=== PATIENT | male | born 1955 | race Caucasian/White ===

== ENCOUNTER 2016-12-13 13:27 | Emergency (ER) | payer BC ==
--- NOTE | 2016-12-13 16:00 | UC ---
Throat Pain/Nasal Rommel HPI - HPI Summary HPI Summary: complaint of nasal congestion and cough that started 2 days ago intermittent headache productive cough with yellow mucus denies fever and chills, sore throat diarrhea for 2 days took delsum, mucinex, affrin wheezing more at night coughing when he lies down denies shortness of breath - History of Current Complaint Stated Complaint: COUGH,CONGESTION,HEADACHE Time Seen by Provider: 12/13/16 15:54 Hx Obtained From: Patient - Allergies/Home Medications Allergies/Adverse Reactions: Allergies Allergy/AdvReac Type Severity Reaction Status Date / Time Sulfamethoxazole Allergy Severe edema/ Verified 12/13/16 15:58 w/Trimethoprim vomiting [From Bactrim] Home Medications: Home Medications [id number] W/ APAP [Delsym Cough + Cold D... 5-52-440-325 mg/10Ml] 1 liq PO ONCE PRN 12/13/16 [History Confirmed 12/13/16] PMH/Surg Hx/FS Hx/Imm Hx Previously Healthy: Yes Cardiovascular History Of: Reports: Hypertension Respiratory History Of: Reports: Asthma - Surgical History Surgical History: None - Family History Known Family History: Positive: Cardiac Disease - father, Hypertension Negative: Respiratory Disease - Social History Lives: With Family Alcohol Use: Daily Alcohol Amount: two glasses of wine daily Substance Use Type: None Smoking Status (MU): Never Smoked Tobacco Household Exposure Type: Cigarettes Review of Systems Constitutional: Negative Skin: Negative Eyes: Negative ENT: Nasal Discharge Respiratory: Cough Cardiovascular: Negative Gastrointestinal: Negative Genitourinary: Negative Motor: Negative Neurovascular: Negative Musculoskeletal: Negative Neurological: Negative Psychological: Negative All Other Systems Reviewed And Are Negative: Yes Physical Exam Triage Information Reviewed: Yes Appearance: No Pain Distress, Well-Nourished Vital Signs Reviewed: Yes Eyes: Positive: Conjunctiva Clear ENT: Positive: Pharyngeal erythema, Nasal congestion, TMs normal. Negative: TM bulging, TM red Neck: Positive: No Lymphadenopathy Respiratory: Positive: No respiratory distress, No accessory muscle use, Wheezing - in both upper lobes. Negative: Rhonchi, Stridor Cardiovascular: Positive: RRR, No Murmur, Pulses Normal Musculoskeletal: Positive: No Edema Neurological: Positive: Alert Psychological Exam: Normal Skin Exam: Normal Re-Evaluation - Re-Evaluation First Eval Change: Improved - less wheezing Throat Pain/Nasal Course/Dx - Differential Dx/Diagnosis Differential Diagnosis/HQI/PQRI: Influenza, Pharyngitis, URI Provider Diagnoses: asthma exacerbation Discharge - Discharge Plan Condition: Stable Disposition: HOME Prescriptions: Albuterol HFA INHALER* [Ventolin HFA Inhaler*] 2 puff INH Q4H PRN #1 mdi PRN Reason: Wheezing predniSONE TAB* [Deltasone TAB*] 50 mg PO DAILY #5 tab Patient Education Materials: Bronchospasm (ED), Asthma (ED) Referrals: ADAN Castellano [Primary Care Provider] - Additional Instructions: Please take prednisone as directed Use your albuterol inhaler every 4-6 hours when needed for wheezing, shortness of breath or uncontrolled coughing. Increase fluids and rest Take acetaminophen or ibuprofen for fever or pain stop using afrin for congestion as your blood pressure is elevated Please review your discharge instructions. If your symptoms do not improve please call your primary care provider or return to urgent care.
[2016-12-13 16:01] VITALS: BP 162/110
[2016-12-13] MEDS ORDERED: Albuterol/Ipratropium NEB.SOL* Albuterol 2.5 MG/Ipratropium 0.5 MG 3 ML INH ONE (16:02)
== END 2016-12-13 16:42 | disposition home or self-care (01) ==
LOC: UCCORT 13:27
DX: J45.901 Unspecified asthma with (acute) exacerbation (principal); R09.81 Nasal congestion; I10 Essential (primary) hypertension; Z77.22 Contact with and (suspected) exposure to environmental tobacco smoke (acute) (chronic); Z88.2 Allergy status to sulfonamides
CPT/HCPCS: 99212; A9270-GY; G0463

== ENCOUNTER 2017-10-25 11:43 | Emergency (ER) | payer BC ==
[2017-10-25 13:22] VITALS: BP 149/92
--- NOTE | 2017-10-25 13:35 | UC ---
Throat Pain/Nasal Rommel HPI - HPI Summary HPI Summary: Pt c/o URI like symptoms that began at 10/09 , they improved but never resolved. Pt now states that he has a worsening sore throat, cough and chest congestion. - History of Current Complaint Chief Complaint: UCRespiratory Stated Complaint: SORE THROAT Time Seen by Provider: 10/25/17 13:29 Hx Obtained From: Patient Onset/Duration: Gradual Onset, Lasting Weeks, Still Present, Worse Since - onset Severity: Moderate Cough: Nonproductive Associated Signs & Symptoms: Positive: Dysphagia, Hoarseness - Epiglottits Risk Factors Epiglottis Risk Factors: Negative - Allergies/Home Medications Allergies/Adverse Reactions: Allergies Allergy/AdvReac Type Severity Reaction Status Date / Time Sulfamethoxazole Allergy Severe edema/ Verified 10/25/17 13:18 w/Trimethoprim vomiting [From Bactrim] Home Medications: Home Medications Chlorpheniramine-Dm [Coricidin Hbp Cough & Col 4-30 mg] 2 tab PO Q4H PRN [History Confirmed 10/25/17] PMH/Surg Hx/FS Hx/Imm Hx Previously Healthy: Yes - Surgical History Surgical History: None - Family History Known Family History: Positive: Cardiac Disease - father, Hypertension Negative: Respiratory Disease - Social History Occupation: Retired Lives: With Family Alcohol Use: 1-2 glasses of wine daily Alcohol Amount: two glasses of wine daily Substance Use Type: None Smoking Status (MU): Never Smoked Tobacco Household Exposure Type: Cigarettes - Immunization History Most Recent Influenza Vaccination: September 2017 Review of Systems Constitutional: Chills, Fatigue Skin: Negative Eyes: Negative ENT: Sore Throat Respiratory: Cough Cardiovascular: Negative Gastrointestinal: Negative Genitourinary: Negative Motor: Negative Neurovascular: Negative Musculoskeletal: Negative Neurological: Negative Psychological: Negative Is Patient Immunocompromised?: No All Other Systems Reviewed And Are Negative: Yes Physical Exam Triage Information Reviewed: Yes Appearance: Well-Appearing Vital Signs: Initial Vital Signs Temp 98.1 F 10/25/17 13:17 Pulse 86 10/25/17 13:17 Resp 16 10/25/17 13:17 BP 149/92 10/25/17 13:17 Pulse Ox 98 10/25/17 13:17 Vital Signs Reviewed: Yes Eye Exam: Normal ENT Exam: Other ENT: Positive: Nasal congestion Dental Exam: Normal Neck exam: Normal Respiratory Exam: Other Respiratory: Positive: Normal breath sounds Cardiovascular Exam: Normal Musculoskeletal Exam: Normal Neurological Exam: Normal Psychological Exam: Normal Skin Exam: Normal Throat Pain/Nasal Course/Dx - Differential Dx/Diagnosis Differential Diagnosis/HQI/PQRI: Pharyngitis, Tonsillitis, URI Provider Diagnoses: Pharyngitis Discharge - Discharge Plan Condition: Stable Disposition: HOME Prescriptions: Amoxicillin PO (*) [Amoxicillin 875 MG (*)] 875 mg PO Q12H #20 tab Patient Education Materials: Pharyngitis (ED) Referrals: ADAN Castellano [Primary Care Provider] - If Needed Additional Instructions: Please follow up with your PCP or return to clinic as needed
== END 2017-10-25 13:48 | disposition home or self-care (01) ==
LOC: UCCORT 11:43
DX: J02.9 Acute pharyngitis, unspecified (principal)
CPT/HCPCS: 99212; G0463